=== PATIENT | female | born 1955 | race African-American/Black ===

== ENCOUNTER 2017-09-16 03:51 | Emergency (ER) | payer OTHER ==
[~2017-09-16] VITALS: Ht 160 cm; Wt 65.0 kg
[2017-09-16 06:15] VITALS: BP 147/88
== END 2017-09-16 06:55 | disposition home or self-care (01) ==
LOC: ER 03:55
DX: R04.0 Epistaxis (principal); I10 Essential (primary) hypertension
CPT/HCPCS: 99283

== ENCOUNTER 2018-12-27 18:42 | Emergency (ER) | payer OTHER ==
[~2018-12-27] VITALS: Ht 162.6 cm; Wt 55.0 kg
[2018-12-27] MEDS ORDERED: TETANUS, DIPHTHERIA, PERTUSSIS VAC/PF 0.5ML (>7YR OLD) IM ONE (20:30)
[2018-12-27] MEDS ORDERED: LIDOCAINE HCL/PF 1% 10 MG/ML 5ML VIAL IJ ONE (20:30)
[2018-12-27 21:01] LABS: CLARITY URINE CLEAR (CLEAR); COLOR URINE YELLOW (YELLOW); KETONES URINE NEGATIVE (NEGATIVE); LEUKOCYTE ESTERASE URINE 1+ (NEGATIVE); NITRITE URINE NEGATIVE (NEGATIVE); OCCULT BLOOD URINE NEGATIVE (NEGATIVE); PROTEIN URINE NEGATIVE (NEGATIVE); SPECIFIC GRAVITY URINE 1.005 (1.005-1.030); UROBILINOGEN URINE 0.2 E.U./dL (0.2-1.0)
[2018-12-27 21:24] LABS: *AMPHETAMINES SCREEN URINE NEGATIVE (NEGATIVE); *BARBITURATES SCREEN URINE NEGATIVE (NEGATIVE); *BENZODIAZEPINES SCREEN URINE NEGATIVE (NEGATIVE); CANNABINOID URINE SCREEN NEGATIVE (NEGATIVE); PHENCYCLIDINE URINE SCREEN NEGATIVE (NEGATIVE)
[2018-12-27 21:26] LABS: *COCAINE SCREEN URINE NEGATIVE (NEGATIVE); METHADONE URINE SCREEN NEGATIVE (NEGATIVE); OPIATES URINE SCREEN NEGATIVE (NEGATIVE)
[2018-12-27 22:30] VITALS: BP 152/89
== END 2018-12-27 23:04 | disposition home or self-care (01) ==
LOC: ER 18:54
DX: S01.511A Laceration without foreign body of lip, initial encounter (principal); S20.212A Contusion of left front wall of thorax, initial encounter; N39.0 Urinary tract infection, site not specified; I10 Essential (primary) hypertension; V47.5XXA Car driver injured in collision with fixed or stationary object in traffic accident, initial encounter; Y93.89 Activity, other specified; Y92.410 Unspecified street and highway as the place of occurrence of the external cause
CPT/HCPCS: 12011; 70450; 71101; 80305; 81003; 90471; 90715; 99284; J3490; Z7610

== ENCOUNTER 2022-07-23 20:56 | Emergency (ER) | payer OTHER, MEDICAID ==
[~2022-07-23] VITALS: Ht 165.1 cm; Wt 91.0 kg
[2022-07-23 21:36] VITALS: BP 160/88
== END 2022-07-23 21:36 | disposition left against medical advice (07) ==
LOC: ER 20:56
DX: Z53.21 Procedure and treatment not carried out due to patient leaving prior to being seen by health care provider (principal)